=== PATIENT | female | born 1965 | race Two or more races ===

== ENCOUNTER 2016-08-26 11:41 | Emergency (ER) | payer OTHER ==
--- NOTE | ~2016-08-26 | EKG ---
PATIENT: DEENA HINES UNIT #: [id number] Ventricular Rate: 67 BPM Atrial Rate: 67 BPM P-R Interval: 166 ms QRS Duration: 86 ms Q-T Interval: 420 ms QTC Calculation(Bezet): 443 ms P [place]: 58 degrees Calculated R [place]: 44 degrees Calculated T [place]: 85 degrees Diagnosis Line: Normal sinus rhythm Diagnosis Line: Nonspecific T wave abnormality Diagnosis Line: Abnormal ECG Diagnosis Line: Diagnosis Line: Confirmed by NAY JI MD ([id number]) on Diagnosis Line: 08/26/2016 4:16:20 PM INTERPRETING MD: GARRISON ROBINS
--- NOTE | ~2016-08-26 | CT23 ---
[facility] A Service of [facility] RADIOLOGY TEXT RESULTS PATIENT: DEENA HINES [id number] : [birth year] UNIT #: [id number] AGE: [address]: Rosemary Jesus MD SEX: F ORDER DR: [id number] [facility] [address] [place], [place] [address] [id number] E MR#: [id number] [facility] #: [id number] NAME: DEENA HINES : 1965 SEX: F STUDY DATE/TIME: 08/26/2016 13:01 UNIT: [facility] ROOM: STUDY DESCRIPTION: CT Angio Neck Attending Physician: Rosemary Jesus M.D. Ordering Physician: Rosemary Jesus M.D. Primary Care Physician: Generic Doctor Not In System MEDICAL IMAGING REPORT This report is preliminary unless electronic signature is present EXAM Head and neck CT angiogram with contrast, date of study 08/26/2016 PROCEDURE Axial contrast-enhanced head and neck CT angiogram with three-dimensional reformats. This CT exam was performed with one or more of the following radiation dose reduction techniques: Automatic exposure control, adjustment of mA and/or kV according to patient size, and iterative reconstruction. COMPARISON Head CT, same date. HISTORY Left side headache, blurred vision, dizziness and weakness for one week. FINDINGS There is a normal arch branching pattern without proximal great vessel stenosis. The cervical common carotid, internal carotid, external carotid and vertebral arteries are normal. There is left vertebral dominance. The carotid bifurcations are normal, without evidence of plaque or any stenosis by NASCET or other criteria. The cervical soft tissues are unremarkable. Intracranially, there is symmetric vascularity. There is no evidence of intracranial aneurysm or intracranial flow-limiting stenosis. The anterior communicator is clearly patent. Neither posterior communicator is convincingly demonstrated. The patient has had left pterional craniotomy and aneurysm clipping and there is left anterior temporal encephalomalacia, but again no evidence of recurrent or new aneurysm. The dural venous sinuses are normally patent. IMPRESSION [facility] A Service of [facility] RADIOLOGY TEXT RESULTS PATIENT: DEENA HINES LOCATION: [facility] #: [id number] : [birth year] UNIT #: [id number] AGE: [address]: Rosemary Jesus MD SEX: F ORDER DR: 1. Negative head and neck CT angiogram. Previous left pterional craniotomy and aneurysm clipping. No evidence of intracranial aneurysm or flow-limiting stenosis. Symmetric intracranial vascularity. 2. Left temporal encephalomalacia subjacent to the craniotomy site. 3. Normal cervical vasculature, including normal carotid bifurcations bilaterally, without evidence of any narrowing or stenosis by NASCET criteria or other criteria. Dictated by... Gerard Calero M.D. THIS IS AN ELECTRONICALLY VERIFIED REPORT Gerard Calero M.D. at 08/27/2016 11:48 AM TEV/psc TD: 08/26/2016 22:42 JOB #: [id number] MEDICAL IMAGING REPORT COPY
--- NOTE | ~2016-08-26 | CT17 ---
[facility] A Service of [facility] RADIOLOGY TEXT RESULTS PATIENT: DEENA HINES LOCATION: [facility] : 61 UNIT #: [id number] AGE: [address]: Rosemary Jesus MD SEX: F ORDER DR: [id number] [facility] [address] [place], [place] [address] [id number] E MR#: [id number] Acc #: [id number] NAME: DEENA HINES : 1965 SEX: F STUDY DATE/TIME: 08/26/2016 13:01 UNIT: [facility] ROOM: STUDY DESCRIPTION: CT Angio Head Attending Physician: Rosemary Jesus M.D. Ordering Physician: Rosemary Jesus M.D. Primary Care Physician: Generic Doctor Not In System MEDICAL IMAGING REPORT This report is preliminary unless electronic signature is present EXAM CT angio head HISTORY Left side headache, blurred vision, dizziness and weakness for one week. FINDINGS Please see CT ANGIO NECK report for combined text results. Dictated by... Gerard Calero M.D. THIS IS AN ELECTRONICALLY VERIFIED REPORT Gerard Calero M.D. at 08/27/2016 11:48 AM LOIDA/owen TD: 08/26/2016 22:50 JOB #: [id number] MEDICAL IMAGING REPORT COPY
--- NOTE | ~2016-08-26 | CT71 ---
[facility] A Service of [facility] RADIOLOGY TEXT RESULTS PATIENT: DEENA HINES LOCATION: [facility] : 61 UNIT #: [id number] AGE: [address]: Rosemary Jesus MD SEX: F ORDER DR: [id number] [place] [id number] [facility] [place] [facility]. [place], [place] [address] [id number] E MR#: [id number] Acc #: [id number] NAME: DEENA HINES : 1965 SEX: F STUDY DATE/TIME: 08/26/2016 12:58 UNIT: [facility] ROOM: STUDY DESCRIPTION: CT Head Wo Contrast Attending Physician: Rosemary Jesus M.D. Ordering Physician: Rosemary Jesus M.D. Primary Care Physician: Stephanie Not Listed MEDICAL IMAGING REPORT This report is preliminary unless electronic signature is present EXAM Noncontrast head CT. HISTORY Left-sided headaches, blurred vision, dizziness, weakness x1 week. History of aneurysm repair in 2002. TECHNIQUE This CT exam was performed with one or more of the following radiation dose reduction techniques: automatic exposure control, adjustment of mA and/or kV according to patient size, and iterative reconstruction. FINDINGS Examination demonstrates postsurgical changes left temporoparietal region compatible with prior craniotomy. There is extensive encephalomalacia involving the anterior left temporal lobe. No mass or mass effect. No hemorrhage. Ventricles show minimal asymmetry not felt to be clinically significant. No mass or hemorrhage or abnormal extraaxial fluid collections. IMPRESSION 1. No acute intracranial abnormality identified. 2. Postsurgical changes from a left temporal craniotomy and craniectomy with extensive encephalomalacia involving the left temporal lobe. This is all presumably postsurgical as the patient reports a history of prior aneurysm repair. Dictated by.Bita. Tre Carter M.D. THIS IS AN ELECTRONICALLY VERIFIED REPORT [facility] A Service of [facility] RADIOLOGY TEXT RESULTS PATIENT: DEENA HINES LOCATION: [facility] : 61 UNIT #: [id number] AGE: [address]: Rosemary Jesus MD SEX: F ORDER DR: Tre Carter M.D. at 08/26/2016 4:59 PM GRACIA/conor TD: 08/26/2016 16:47 JOB #: [id number] MEDICAL IMAGING REPORT COPY
--- NOTE | ~2016-08-26 | MR18 ---
[facility] A Service of [facility] RADIOLOGY TEXT RESULTS PATIENT: DEENA HINES LOCATION: [facility] : 61 UNIT #: [id number] AGE: [address]: Rosemary Jesus MD SEX: F ORDER DR: [id number] [place] [id number] [facility]. [place], [place] [address] [id number] E MR#: [id number] Acc #: [id number] NAME: DEENA HINES : 1965 SEX: F STUDY DATE/TIME: 08/26/2016 16:39 UNIT: [facility] ROOM: STUDY DESCRIPTION: MR Brain Wo Contrast Attending Physician: Rosemary Jesus M.D. Ordering Physician: Rosemary Jesus M.D. Primary Care Physician: Generic Doctor Not In System MRI CENTER REPORT This report is preliminary unless electronic signature is present. EXAM MRI brain without contrast HISTORY Left visual loss, acute onset today. FINDINGS MRI brain without contrast demonstrates no recent ischemia or infarct. No intracranial mass or edema. Anterior left temporal lobe encephalomalacia corresponds to findings on CT earlier today. Prior left frontotemporal craniotomy. No midline shift. No ventricular dilatation. No additional focal atrophy. IMPRESSION 1. No acute findings. 2. No recent ischemia or infarct. 3. Encephalomalacia in the anterior left temporal lobe deep to the left frontotemporal craniotomy. Dictated by... Horace Jauregui M.D. THIS IS AN ELECTRONICALLY VERIFIED REPORT Horace Jauregui M.D. at 08/27/2016 3:53 PM DFL/aranza TD: 08/27/2016 07:26 JOB #: [id number] MRI CENTER REPORT [facility] A Service of [facility] RADIOLOGY TEXT RESULTS PATIENT: DEENA HINES LOCATION: [facility] : 61 UNIT #: [id number] AGE: [address]: Rosemary Jesus MD SEX: F ORDER DR: COPY
[2016-08-26 12:27] LABS: POC - CREATININE 0.62 mg/dL (0.44-1.03); POC - GFR >60.0 mL/min (>60)
[2016-08-26 14:04] LABS: BASOPHIL% 0.3 % (0-2.5); EOSINOPHIL% 0.4 % (0.0-7.0); HEMATOCRIT 41.3 % (35.0-45.0); HEMOGLOBIN 13.7 gm/dL (12.0-16.0); LYMPHOCYTE# 2.2 X10e3 (1.0-3.5); MEAN CELL VOLUME 83.3 FL (83-96); MEAN CORPUSCULAR HEMOGLOBIN 27.6 PG (28-34); MEAN CORPUSCULAR HGB CONC 33.2 g/dL (30-36); MEAN PLATELET VOLUME 7.3 FL (6.5-11.5); MONOCYTE# 0.3 X10e3 (0-1.0); MONOCYTE% 4.9 % (3.0-12.0); NEUTROPHIL# 3.3 X10e3 (1.5-7.1); NEUTROPHIL% 56.4 % (40-75); PLATELET COUNT 216 X10e3 (140-420); RED BLOOD COUNT 4.95 X10e (3.90-5.30); RED CELL DISTRIBUTION WIDTH 13.2 % (11.0-15.5); WHITE BLOOD COUNT 5.8 X10e3 (4.0-10.5)
[2016-08-26 14:05] LABS: DIFF IND NO
[2016-08-26 14:18] LABS: PARTIAL THROMBOPLASTIN TIME 28.7 SECONDS (23.5-31.3); PROTHROMBIN TIME (PATIENT) 10.2 SECONDS (9.6-11.5)
[2016-08-26 14:30] LABS: ALKALINE PHOSPHATASE 76 U/L (32-92); ALT (SGPT) 16 U/L (10-40); AST (SGOT) 20 U/L (10-42); BILIRUBIN, DIRECT 0.1 mg/dL (0.0-0.2); BILIRUBIN,INDIRECT 0.3 mg/dL (0.0-0.9); BILIRUBIN,TOTAL 0.4 mg/dL (0.2-2.0); BLOOD UREA NITROGEN 11 mg/dL (9-23); CALCIUM SERUM 8.7 mg/dL (8.4-10.2); CARBON DIOXIDE 24 mmol/L (22-31); CHLORIDE 106 mmol/L (100-111); CREATININE SERUM 0.4 mg/dL (0.6-1.4); GLOM FILT RATE Estimated ABOVE60 mL/min (>60); GLUCOSE FASTING 77 mg/dL (70-110); POTASSIUM 3.7 mmol/L (3.5-5.1); PROTEIN TOTAL SERUM 7.3 g/dL (6.0-8.3); SODIUM 138 mmol/L (135-145)
== END 2016-08-26 18:02 | disposition home or self-care (01) ==
LOC: CED 11:41
PROVIDERS: Emergency Medicine
DX: R51 Headache (principal); I10 Essential (primary) hypertension
CPT/HCPCS: 36415; 70450; 70496; 70498; 70551; 80048; 80076; 82565; 85025; 85610; 85730; 93005; 96374; 96375; 99284; J2270; J2405; J3490; Q9967

== ENCOUNTER 2016-10-05 10:32 | Inpatient (IN) | payer SELFPAY ==
--- NOTE | ~2016-10-05 | HP ---
Unit #: [id number] #: [id number] Patient: DEENA HINES [id number] [address] [address] [id number] E MR#: [id number] NAME: DEENA HINES. ROOM: Age: 51 Sex: F Admission Date: 10/05/2016 : 1965 Attending Physician: Allan Moreira M.D. Primary Care Physician: Primary Care Physician No HISTORY AND PHYSICAL CHIEF COMPLAINT Chest pain and shortness of air. HISTORY OF PRESENT ILLNESS Ms. Hines was brought in through the emergency room being carried by her . In the triage, her heart rate was 193 and she was immediately brought into the emergency room. In the emergency room, she was cardioverted with 50 joules for a narrow-complex tachycardia and she was cardioverted into a normal sinus rhythm. The patient states that prior to her arrival for 10 minutes she had chest discomfort, it was described as sharp, radiating to her back associated with shortness of air. She was eating prior to this and states that she did not choke, she did not have any difficulty swallowing. The patient does speak German, feather shaper phone was used, feather shaper number [id number]. At time of interview, she is pain-free. In the emergency room, she received oral Lopressor, IV Lopressor, potassium supplementation. PAST MEDICAL HISTORY 1. 02/03/2003 she presented in full arrest with a subarachnoid hemorrhage. She had a cerebral aneurysm and, at that time, she had an aneurysm clipping and a left frontal craniotomy emergently. 2. 4, para 4. 3. Hypertension. PAST SURGICAL HISTORY Aneurysm clipping and craniotomy, 02/03/2003. HOME MEDICATIONS 1. Motrin 600 mg t.i.d. p.r.n. 2. Lisinopril 20 mg daily. 3. Omeprazole 40 mg daily. ALLERGIES No known drug allergies. SOCIAL HISTORY No tobacco, no alcohol, no illicit drug use. Lives in the company of her . FAMILY HISTORY No history of premature arteriosclerotic heart disease. Sister has liver disease. Unit #: [id number] #: [id number] Patient: DEENA HINES REVIEW OF SYSTEMS All systems are negative except for the chest discomfort and shortness of air that started prior to arrival. PHYSICAL EXAMINATION VITAL SIGNS: Ventricular rate 192 on admission. Repeat was 102. Respirations 17. Saturation 100%. Blood pressure 160/92. She is 5 feet 3 inches, weight 56.69 kg. BMI 22. GENERAL: Well-developed, well-nourished 51-year-old German female seen in the emergency room, in no acute distress. At the time of this dictation, she is now in normal sinus rhythm. HEENT: Normocephalic, atraumatic. No xanthelasma. Pupils equal, round, reactive to light. Extraocular movements are intact. NECK: Supple. No jugular venous distention. No elevated CVP. No obvious thyromegaly. LUNGS: Clear to auscultation anteriorly/posteriorly bilaterally. HEART: S1, S2, no S3, S4. No murmurs, rubs or gallops. PMI nondisplaced. ABDOMEN: Soft, nontender, nondistended. Positive bowel sounds. EXTREMITIES: No clubbing, cyanosis, or edema. 2+ pulses. SPINE: No scoliosis. SKIN: No rash. DIAGNOSTIC STUDIES LABORATORY: Sodium 140, potassium 2.8, chloride 106, CO2 is 22, BUN 18, creatinine 0.8, glucose 199, total protein 7.9, albumin 4.6, total bilirubin 1.0, direct bilirubin 0.2, indirect bilirubin 0.8, AST 50, ALT 56, alkaline phosphatase 80. PT 10.5, INR 1.0, PTT 28.1. D-dimer 227. Point of care testing shows a POC CKMB 1.4, troponin less than 0.05. Hemoglobin 13.8, hematocrit 42.0, white blood cell count 7.6, platelets 226. IMAGING: Of note, patient was here in August with complaints of migraine headache. At that time, she had an MRI of her brain that showed no acute findings of recent ischemia or infarct; encephalomalacia in the anterior left temporal lobe deep to the left frontotemporal craniotomy . She also had CT angio of the neck which showed negative head and neck CT angiogram. Previous craniotomy and clipping present. Normal cervical vasculature including normal carotid bifurcations bilaterally without evidence of any narrowing or stenosis by NASCET criteria. ASSESSMENT AND PLAN 1. PSVT, narrow-complex tachycardia, converted with 50 joule cardioversion to sinus rhythm. 2. Chest discomfort and shortness of air. Plan per Dr. Lucas. Patient was seen per Dr. Lucas. She will receive repeat supplementation of her potassium for hypokalemia. Lopressor 25 b.i.d. We will check an echo, troponin, BMP, TSH, lipid profile in the morning. Healthy-heart diet. She will have a walking Lexiscan in the a.m. DVT prophylaxis with Lovenox. Home medication of omeprazole 40 mg daily will be continued. We will hold her lisinopril. We will hold her Motrin. Unit #: [id number] #: [id number] Patient: DEENA HINES Dictated by Tessa Rajput.P.RBitaN. for Mine Griffin/armida TD: 10/05/2016 12:19 JOB #: [id number] HISTORY AND PHYSICAL Page 1 of 1 X X HISTORY AND PHYSICAL
--- NOTE | ~2016-10-05 | ST ---
Unit #: [id number] #: [id number] Patient: DEENA HINES [id number] [address] [place], [place] [address] [id number] I MR#: [id number] NAME: DEENA HINES. : 1965 SEX: F STUDY DATE/TIME: 10/06/2016 UNIT: [facility] [place] [facility] ROOM: 577 STUDY DESCRIPTION: Cardiac stress test. Attending Physician: Lavonne Lucas M.D. Primary Care Physician: No Primary Care Physician CARDIOLOGY REPORT EXAM Cardiac stress test. REASON FOR STUDY Chest pain and paroxysmal supraventricular tachycardia. DISCUSSION Baseline EKG reveals sinus bradycardia with a ventricular rate of 59 beats per minute. There was some mild ST elevation noted in V1 and V2, but this was not diagnostic criteria. A total of 0.4 mg of Lexiscan was injected per protocol, followed by Cardiolite. There were no complaints of chest pain. There were no sustained arrhythmias noted. There were no ST or T wave changes from baseline to suggest ischemia. Maximal heart rate was 90 beats per minute with maximum blood pressure of 135/74 mmHg. The test was stopped due to protocol completion. IMPRESSION 1. Negative EKG portion of Lexiscan Cardiolite stress test. 2. There were no complaints of chest pain. 3. There were no sustained arrhythmias noted. 4. There were no ST or T wave changes to suggest ischemia from baseline. 5. Please correlate with Cardiolite images. Dictated by... Nila Camarillo APRN for Mine Griffin TD: 10/06/2016 13:53 JOB #: [id number] CARDIOLOGY REPORT Page 1 of 1 X CARDIOLOGY REPORT
--- NOTE | ~2016-10-05 | EKG ---
PATIENT: DEENA HINES UNIT #: [id number] Ventricular Rate: 65 BPM Atrial Rate: 65 BPM P-R Interval: 146 ms QRS Duration: 80 ms Q-T Interval: 452 ms QTC Calculation(Bezet): 470 ms P [place]: 48 degrees Calculated R [place]: 39 degrees Calculated T [place]: 78 degrees Diagnosis Line: Normal sinus rhythm Diagnosis Line: Nonspecific T wave abnormality Diagnosis Line: Prolonged QT Diagnosis Line: Abnormal ECG Diagnosis Line: When compared with ECG of 05-OCT-2016 10:45, Diagnosis Line: No significant change was found Diagnosis Line: Confirmed by KJ MAYORGA MD ([id number]) on 10/07/2016 Diagnosis Line: 5:38:28 AM INTERPRETING MD: MUKESH ROBINS
--- NOTE | ~2016-10-05 | EKG ---
PATIENT: DEENA HINES UNIT #: [id number] Ventricular Rate: 81 BPM Atrial Rate: 81 BPM P-R Interval: 176 ms QRS Duration: 78 ms Q-T Interval: 396 ms QTC Calculation(Bezet): 460 ms P [place]: 76 degrees Calculated R [place]: 46 degrees Calculated T [place]: 82 degrees Diagnosis Line: Normal sinus rhythm Diagnosis Line: Normal ECG Diagnosis Line: Diagnosis Line: Confirmed by LAURA MALHOTRA MD ([id number]) on Diagnosis Line: 10/05/2016 3:59:18 PM INTERPRETING MD: MELVIN
--- NOTE | ~2016-10-05 | TH ---
Unit #: [id number] #: [id number] Patient: DEENA HINES [id number] [address] [address] [id number] I MR#: [id number] NAME: DEENA HIENS. : 1965 SEX: F STUDY DATE/TIME: 10/06/2016 UNIT: [facility] ROOM: 577 STUDY DESCRIPTION: Cardiolite imaging Attending Physician: Lavonne uLcas M.D. Primary Care Physician: Indira Primary Care Physician CARDIOLOGY REPORT EXAM Cardiolite imaging. PROCEDURE Using technetium 99m labeled Cardiolite, rest and stress SPECT images were obtained. Multiple SPECT images were obtained in various views, including horizontal and vertical long axis and short axis views of the left ventricle. Images were obtained by gated SPECT method. The patient was administered 10.27 mCi of Cardiolite at rest. The patient was administered 32.3 mCi of Cardiolite after Lexiscan infusion was completed. On the stress images there is normal perfusion noted. The rest images show normal perfusion. Comparing rest and stress images there is no stress induced ischemia noted. The left ventricular ejection fraction was calculated to be 66%. There is no focal wall motion abnormality seen. CONCLUSION 1. No stress induced ischemia noted. 2. The left ventricular ejection fraction was calculated to be 66%. 3. There is no focal wall motion abnormality seen. 4. The left ventricular size is small. 5. Normal Lexiscan Cardiolite stress test. Dictated by... Mine Griffin TD: 10/06/2016 15:47 JOB #: [id number] CARDIOLOGY REPORT Page 1 of 1 X Lavonne Lucas MD <ELECTRONICALLY SIGNED> 01/10/17 1429 CARDIOLOGY REPORT
--- NOTE | ~2016-10-05 | CR72 ---
[facility] A Service of [facility] & [facility] RADIOLOGY TEXT RESULTS PATIENT: DEENA HINES LOCATION: [place] [address] : [birth year] UNIT #: [id number] AGE: [address]: Lavonne Lucas MD SEX: F ORDER DR: [id number] [facility] [address] [facility] [place], [place] [address] [id number] I MR#: [id number] #: [id number] NAME: DEENA HINES : 1965 SEX: F STUDY DATE/TIME: 10/05/2016 9:45 UNIT: [facility] ROOM: 58164 STUDY DESCRIPTION: CR Chest Single View Portable Attending Physician: Lavonne Lucas M.D. Ordering Physician: Allan Moreira M.D. Primary Care Physician: Primary Care Physician No MEDICAL IMAGING REPORT This report is preliminary unless electronic signature is present EXAM Portable chest, 10/05/2016 HISTORY Shortness of air and chest pain beginning today. COMPARISON None. FINDINGS Frontal chest demonstrates clear lungs. No pleural effusion or pneumothorax. Heart size and mediastinum are normal. Pulmonary vasculature normal. IMPRESSION No acute cardiopulmonary findings. Dictated by... Sandeep Kimball M.D. THIS IS AN ELECTRONICALLY VERIFIED REPORT Sandeep Kimball M.D. at 10/06/2016 8:43 AM HUMBLE/alvarez TD: 10/05/2016 21:42 JOB #: [id number] MEDICAL IMAGING REPORT Page 1 of 1 COPY
--- NOTE | ~2016-10-05 | EKG ---
PATIENT: DEENA HINES UNIT #: [id number] Ventricular Rate: 195 BPM Atrial Rate: 192 BPM QRS Duration: 78 ms Q-T Interval: 238 ms QTC Calculation(Bezet): 428 ms Calculated R [place]: 31 degrees Calculated T [place]: 145 degrees Diagnosis Line: Supraventricular tachycardia Diagnosis Line: Left ventricular hypertrophy with repolarization Diagnosis Line: abnormality Diagnosis Line: Abnormal ECG Diagnosis Line: No previous ECGs available Diagnosis Line: Confirmed by LAURA MALHOTRA MD ([id number]) on Diagnosis Line: 10/05/2016 3:58:07 PM INTERPRETING MD: MELVIN
--- NOTE | ~2016-10-05 | EKG ---
PATIENT: DEENA HINES UNIT #: [id number] Ventricular Rate: 105 BPM Atrial Rate: 105 BPM P-R Interval: 152 ms QRS Duration: 80 ms Q-T Interval: 372 ms QTC Calculation(Bezet): 491 ms P [place]: 69 degrees Calculated R [place]: 21 degrees Calculated T [place]: 93 degrees Diagnosis Line: Sinus tachycardia Diagnosis Line: Possible Left atrial enlargement Diagnosis Line: Left ventricular hypertrophy Diagnosis Line: Nonspecific ST and T wave abnormality Diagnosis Line: Abnormal ECG Diagnosis Line: When compared with ECG of 05-OCT-2016 09:20, Diagnosis Line: (unconfirmed) Diagnosis Line: Sinus rhythm has been restored. Diagnosis Line: Vent. rate has decreased BY 90 BPM Diagnosis Line: ST no longer depressed in Inferior leads Diagnosis Line: ST no longer depressed in Anterior leads Diagnosis Line: Confirmed by LAURA MALHOTRA MD ([id number]) on Diagnosis Line: 10/05/2016 3:58:40 PM INTERPRETING MD: MELVIN
[2016-10-05 10:15] LABS: BASOPHIL% 0.2 % (0-2.5); EOSINOPHIL% 0.4 % (0.0-7.0); HEMOGLOBIN 13.8 gm/dL (12.0-16.0); LYMPHOCYTE# 1.2 X10e3 (1.0-3.5); LYMPHOCYTE% 16.2 % (17.0-45.0); MEAN CELL VOLUME 83.7 FL (83-96); MEAN CORPUSCULAR HEMOGLOBIN 27.6 PG (28-34); MEAN CORPUSCULAR HGB CONC 32.9 g/dL (30-36); MEAN PLATELET VOLUME 7.4 FL (6.5-11.5); MONOCYTE# 0.3 X10e3 (0-1.0); MONOCYTE% 3.6 % (3.0-12.0); NEUTROPHIL# 6.1 X10e3 (1.5-7.1); NEUTROPHIL% 79.6 % (40-75); PLATELET COUNT 226 X10e3 (140-420); RED BLOOD COUNT 5.01 X10e (3.90-5.30); RED CELL DISTRIBUTION WIDTH 13.3 % (11.0-15.5); WHITE BLOOD COUNT 7.6 X10e3 (4.0-10.5)
[2016-10-05 10:16] LABS: DIFF IND NO
[2016-10-05 10:20] LABS: POC - CKMB 1.4 ng/mL (0.0-7.9); POC - TROPONIN <0.05 ng/mL (<=0.05)
[2016-10-05 10:30] LABS: PARTIAL THROMBOPLASTIN TIME 28.1 SECONDS (23.5-31.3); PROTHROMBIN TIME (PATIENT) 10.5 SECONDS (9.6-11.5)
[2016-10-05 10:45] LABS: ALBUMIN SERUM 4.6 g/dL (3.5-5.0); BILIRUBIN, DIRECT 0.2 mg/dL (0.0-0.2); BILIRUBIN,INDIRECT 0.8 mg/dL (0.0-0.9); BUN/CREATININE RATIO 22.5; CALCIUM SERUM 9.1 mg/dL (8.4-10.2); CREATININE SERUM 0.8 mg/dL (0.6-1.4); GLOM FILT RATE Estimated 84.2 mL/min (>60); PROTEIN TOTAL SERUM 7.9 g/dL (6.0-8.3)
[2016-10-05 10:52] LABS: POTASSIUM 2.8 mmol/L (3.5-5.1)
[2016-10-05] MEDS ORDERED: MOTRIN600 M2 (10:58)
[2016-10-05] MEDS ORDERED: LISINOPRIL20 MG PO (10:59)
[2016-10-05] MEDS ORDERED: OMEPRAZOLE40 M1 PO (10:59)
[2016-10-05 11:46] LABS: POC - CKMB 2.4 ng/mL (0.0-7.9); POC - TROPONIN 0.1 ng/mL (<=0.05)
[2016-10-05 12:37] LABS: AMPHETAMINE NEG (NEG); BARBITURATES NEG (NEG); BENZODIAZEPINES POS (NEG); COCAINE NEG (NEG); MARIJUANA NEG (NEG); OPIATES NEG (NEG); TRICYCLIC ANTIDEPRESSANTS NEG (NEG); U METHADONE NEG (NEG)
[2016-10-06 05:57] LABS: BUN/CREATININE RATIO 22.85; CALCIUM SERUM 9.1 mg/dL (8.4-10.2); CREATININE SERUM 0.7 mg/dL (0.6-1.4); GLOM FILT RATE Estimated 98.9 mL/min (>60); POTASSIUM 4.5 mmol/L (3.5-5.1)
[2016-10-06] MEDS ORDERED: LOPRESSOR PO (15:44)
== END 2016-10-06 17:10 | disposition home or self-care (01) | DRG 310 ==
LOC: CED 10:32 → CEDOF 11:00 → C5C 22:35
PROVIDERS: Emergency Medicine; Internal Medicine Cardiovascular Disease
PROC: B24BZZ4 Ultrasonography of Heart with Aorta, Transesophageal (ICD-10-PCS; principal; 2016-10-05)
PROC: 4A02XM4 Measurement of Cardiac Total Activity, External Approach (ICD-10-PCS; 2016-10-06)
PROC: 3E073KZ Introduction of Other Diagnostic Substance into Coronary Artery, Percutaneous Approach (ICD-10-PCS; 2016-10-06)
DX: I47.1 Supraventricular tachycardia (principal); I10 Essential (primary) hypertension; E87.6 Hypokalemia; Z86.69 Personal history of other diseases of the nervous system and sense organs; Z79.899 Other long term (current) drug therapy
CPT/HCPCS: 36415; 71010; 78452; 80048; 80061; 80076; 80307; 82553; 84443; 84484; 85025; 85379; 85610; 85730; 93005; 93017; 93306; 96374; 96375; 99291; A9500; J1650; J2250; J2785; J3490